=== PATIENT | male | born 1995 | race Caucasian/White ===

== ENCOUNTER 2020-07-24 01:16 | Outpatient (CLI) | payer OTHER, SELFPAY ==
--- NOTE | 2020-07-24 07:00 | DI.MRI_ITS ---
EXAM: MR LOWER JOINT RT WO CLINICAL HISTORY: Right knee pain,RT KNEE EFFUSION,M25.461,M25,561. TECHNIQUE: Multiplanar multisequence MRI was performed. COMPARISON: No exams were available for comparison FINDINGS: Cruciate and collateral ligaments and extensor mechanism appear intact. There is a moderate-sized j oint effusion. The lateral meniscus is intact. There is abnormal high signal in the posterior horn and body of the medial meniscus. There are multiple tiny cysts seen adjacent to the posterior horn. Medial meniscus is somewhat peripherally displaced. There is mild edema in the adjacent marrow. No overlying cartilage defect is seen. There are small spurs from the medial femoral condyle and media l tibial plateau. IMPRESSION: Degenerative changes of the medial meniscus with superimposed tear of the posterior horn and body and several adjacent small meniscal cysts. DATA REPOSITORY:
== END 2020-07-24 01:36 ==
PROVIDERS: PCP Nurse Practitioner Family; Visit Provider Nurse Practitioner Family
DX: M25.461 Effusion, right knee (principal); M25.561 Pain in right knee; M23.303 Other meniscus derangements, unspecified medial meniscus, right knee
CPT/HCPCS: 73721

== ENCOUNTER 2020-07-26 13:08 | Outpatient (CLI) | payer OTHER, SELFPAY ==
--- NOTE | 2020-07-26 09:30 | DI.RAD_ITS ---
EXAM: XR KNEE RT 3V AP,LAT,AYDEN CLINICAL HISTORY: right knee pain. TECHNIQUE: 2D digital imaging was performed. COMPARISON: No exams were available for comparison FINDINGS: BONES: No acute fracture is present. No bony destructive lesion is seen. JOINTS: The knee is normally aligned. No joint effusion is seen. There is minimal spurring at the pat ellofemoral joint. The joint spaces are well maintained. SOFT TISSUE: Normal. IMPRESSION: Minimal patellofemoral joint degenerative changes. DATA REPOSITORY: RADIATION DOSE DELIVERED:
== END 2020-07-26 13:28 ==
PROVIDERS: PCP Nurse Practitioner Family; Referring Provider Nurse Practitioner Family; Visit Provider Student in an Organized Health Care Education/Training Program
DX: M17.11 Unilateral primary osteoarthritis, right knee (principal); M25.561 Pain in right knee
CPT/HCPCS: 73562

== ENCOUNTER 2020-08-21 03:07 | Outpatient (CLI) | payer OTHER, SELFPAY ==
[2020-08-22 11:17] LABS: SARS-CoV-2 RNA Source Nasal/Nares
[2020-08-22 11:18] LABS: SARS-CoV-2 RNA Not Detected (NotDetected)
== END 2020-08-21 03:27 ==
PROVIDERS: PCP Nurse Practitioner Family; Visit Provider Student in an Organized Health Care Education/Training Program
DX: Z11.59 Encounter for screening for other viral diseases (principal); S83.241A Other tear of medial meniscus, current injury, right knee, initial encounter
CPT/HCPCS: U0003

== ENCOUNTER 2020-08-24 08:27 | Day surgery (SDC) | payer OTHER, SELFPAY ==
[2020-08-24] VITALS (7 sets, daily range): BP systolic 119–142; BP diastolic 40–68; PULSE 65–69; RESP 13–16; TEMP 36.1–36.8; O2SAT 98–100
[2020-08-24] MEDS: Lactated Ringers 1,000 ML 100 ML IV (09:12)
--- NOTE | 2020-08-24 10:03 | PDOC.DSDIS_ITS ---
Discharge Plan Disposition Patient Disposition: HOME Condition: Stable Discharge Details Reason For Visit: Right knee surgery Attending Provider: Zachery Lopez Primary Care Provider: Frida Kemp Home Meds and New Rx's Prescriptions: New ibuprofen 800 mg tablet 800 mg PO BID PRN (Reason: pain, moderate) Qty: 60 RF: 0 aspirin 81 mg tablet,delayed release (DR/EC) 81 mg PO DAILY 14 Days Qty: 14 RF: 0 oxycodone 5 mg tablet 5 - 10 mg PO Q4H PRN (Reason: moderate to severe pain) Qty: 12 RF: 0 Discharge Instructions Additional Instructions: Surgery: Right knee arthroscopy with partial medial meniscectomy and synovectomy Activity: Weightbearing as tolerated. Advance range of motion as comfort allows. No knee brace or crutches needed as soon as comfortable. No deep knee flexion for 8 weeks. Recommend avoiding cutting, pivoting, sports, or squatting for 6-8 weeks. A physical therapy prescription will be sent electronically to start in 2 to 3 weeks. Prescriptions: Aspirin 81 mg take 1 daily to prevent a blood clot for 2 weeks Ibuprofen 800 mg take 1 every 12 hours with a meal as needed for moderate pain Oxycodone 5 mg take 1-2 every 4-6 hours as needed for severe pain You may use [id number] Tylenol (acetaminophen) as needed for mild pain. These pain medications may be taken all at once or in different combinations as needed. Also, recommend Colace (docusate) as a stool softener as surgery and pain medicine cause constipation. Dressings: Leave dressing in place for 2-3 days. May then remove and leave open to air or cover incisions with Band-Aids. May shower after 5 days. Follow-up: 10-[address] Lopez (09/05/20 at 9:15 AM) Let us know right away if you develop any redness, drainage, fevers, chest pain, or trouble breathing. Do not drink alcohol or drive for at least 24 hours after anesthesia. Please call the office during business hours with any questions or concerns. Referrals: Zachery Lopez MD [ [facility] STAFF PHYSICIAN] - Discharge Orders Discharge Orders: Discharge Order (Routine); Ordered 08/24/20 Ordered By: Zachery Lopez DS: Diagnosis Discharge Diagnosis (1) Acute medial meniscus tear of right knee: Status: Acute
--- NOTE | 2020-08-24 10:07 | ROE_ITS ---
Date of service: 08/24/20 Time of Service: 12:57 Operative Note Operative Note DATE OF PROCEDURE: 08/24/20 PRE-OP DIAGNOSIS: Right medial meniscus tear POST-OP DIAGNOSIS: same PROCEDURE: Right knee arthroscopy with: 1. Partial medial meniscectomy, CPT #85622 2. Greater than 2 compartment synovectomy, CPT #77373: Anteromedial, anterolateral, patellofemoral, medial gutter 3. Chondroplasty, CPT #54873: Medial patellar facet and central trochlea SURGEON: Zachery Lopez INFORMATION SYSTEMS CONSULTANT: Joaquina Johnson ANESTHESIA: GETA and local ESTIMATED BLOOD LOSS: 5 TOURNIQUET TIME: 0 COMPLICATIONS: None Patient was transported to: PACU Patient's condition: stable Implants: None Indications: Please see complete medical record for details. Findings: Medial gutter plica. Displaced white, white/red posterior horn into the meniscal body thin superior leaflet bucket handle tear with significant fraying. Medial patellar facet and central trochlea limited grade 2?3 cartilage isolated 3x3 mm thinning fraying. Intact medial lateral compartment cartilage surfaces. Intact ACL. Intact lateral meniscus. Procedure Description: In the operating room, general anesthesia was induced. The patient was positioned supine on the operating room table. All bony prominences were well-padded. Preoperative antibiotics were administered. The right knee was prepped and draped in the usual sterile fashion. The correct p atient, procedure, and side of the procedure were all verified prior to incision. Exam under anesthesia was performed. 10 cc of 0.25% bupivacaine containing epinephrine was infiltrated about the anterior medial and anterior lateral knee arthroscopy portals. The portals were established and a complete diagnostic arthroscopy was performed with relevant findings detailed above. The mechanical shaver was used to perform plica removal of the medial gutter. Shaver was then used to remove pathologic impinging synovium anteromedial and anterolaterally as well as engaging patellofemoral compartment. Attention was then turned to the displaced medial meniscus tissue. It was probed and [place] able to be reduced however it was a thin superior leaflet only fragment of mostly white/white zone tissue of the posterior horn and just a small amount of white/red zone tissue near toward the body. It was significantly frayed. Even once reduced it did not appear to be good tissue quality and again was a very thin upper leaflet only type bucketed tear so the decision was made to inspect tissue integrity. The shaver was brought in and easily removed this meniscus tissue confirming its poor quality not amenable to repair. Shaver was used to clean up the frayed ends of the superior remaining meniscus as well as a meniscal biter most posteriorly and anteriorly. The remnant which was the brian ority the meniscus probably 80% of the posterior horn and body was probed and found to be intact and stable. The arthroscope was driven from the anterior lateral portal through the notch to the posterior medial compartment and the meniscus capsular junction evaluated found to be intact. No loose bodies posteriorly. Under direct arthroscopic visualization an 18-gauge needle was passed into the k nee from superior lateral to the superior patellar pouch. The knee was copiously irrigated with arthroscopic fluid before being drained of all fluid. The anteromedial anterolateral portals were closed in 3-0 Monocryl in a buried interrupted fashion. 20 cc of 0.25% bupivacaine with epinephrine containing 4 mg of morphine was infiltrated into the knee through the previously placed needle. Mastisol, Steri-Strips, dry 4 x 4 gauze, and sterile soft roll wrapped about the knee. The right lower extremity was then wrapped in a gentle compressive Elpidio bandage. The patient awoke from anesthesia without complication and was transferred to the recovery room in a stable condition.
[2020-08-24] MEDS: ceFAZolin 2 GM/50 ML BAG IVPB (10:58)
[2020-08-24] MEDS: Bupivacaine 0.25% Pres-Free 30 ML VIAL (11:31)
[2020-08-24] MEDS: EPINEPHrine 30 MG/30 ML VIAL (11:31)
[2020-08-24] MEDS: EPINEPHrine 1 MG/ML AMP pres-free (11:32)
== END 2020-08-24 15:05 | disposition home or self-care (01) ==
PROVIDERS: PCP Nurse Practitioner Family; Visit Provider Student in an Organized Health Care Education/Training Program
PROC: (CPT 29870; principal; 2020-08-24 10:00)
DX: S83.241A Other tear of medial meniscus, current injury, right knee, initial encounter (principal); X50.0XXA Overexertion from strenuous movement or load, initial encounter; Y99.0 Civilian activity done for income or pay; M67.51 Plica syndrome, right knee
CPT/HCPCS: 29876; 29881; J0171; J0690; J1100; J1885; J2250; J2405; J2704